=== PATIENT | male | born 1995 | race Two or more races ===

== ENCOUNTER 2021-12-12 21:36 | Emergency (ER) | payer MEDICAID ==
[~2021-12-12] VITALS: Ht 172.7 cm; Wt 54.4 kg
[2021-12-12 21:45] VITALS: BP 136/89
== END 2021-12-12 23:46 | disposition left against medical advice (07) ==
LOC: EDBD 21:36 → ER 21:43
DX: R06.02 Shortness of breath (principal); Z53.21 Procedure and treatment not carried out due to patient leaving prior to being seen by health care provider